=== PATIENT | female | born 1975 | race American Indian/Alaskan Native ===

== ENCOUNTER 2017-05-17 19:09 | Emergency (ER) | payer OTHER ==
[2017-05-17 20:58] VITALS: BP 136/78
== END 2017-05-18 05:02 | disposition left against medical advice (07) ==
LOC: ED 19:09
DX: Z53.21 Procedure and treatment not carried out due to patient leaving prior to being seen by health care provider (principal)

== ENCOUNTER 2017-05-19 14:57 | Emergency (ER) | payer OTHER ==
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
[2017-05-20] MEDS ORDERED: NORCO 5/325 PO ONE (02:16)
[2017-05-20] MEDS ORDERED: FLEXERIL PO ONE (02:16)
[2017-05-20 05:45] VITALS: BP 131/84
== END 2017-05-20 03:30 | disposition home or self-care (01) ==
LOC: ED 14:57
DX: M62.830 Muscle spasm of back (principal); R51 Headache; M54.5 Low back pain; V49.49XA Driver injured in collision with other motor vehicles in traffic accident, initial encounter; Y93.89 Activity, other specified; Y92.89 Other specified places as the place of occurrence of the external cause; Y99.8 Other external cause status
CPT/HCPCS: 99282